=== PATIENT | male | born 1940 | race African-American/Black ===

== ENCOUNTER → 2020-04-17 | Outpatient (CLI) | payer MEDICARE ==
[~2020-04-17] MED LIST: CALCITRIOL0.25 MCG PO; CLOPIDOGREL75 MG PO; FLOMAX0.4 MG PO; FUROSEMIDE40 MG PO; GABAPENTIN100 MG; METOPROLOL SUCC25 MG; NIFEDIPINE20 MG; RENVELA0.8 GM PO; SIMVASTATIN20 MG PO
== END ==
LOC: RAD 13:15
PROVIDERS: ATTEND Surgery
DX: N18.9 Chronic kidney disease, unspecified (principal)
CPT/HCPCS: 93970

== ENCOUNTER → 2020-04-21 | Outpatient (CLI) | payer MEDICARE, OTHER ==
[2020-04-17 13:38] LABS: BASOPHILS % 0.3 % (0.0-1.0); EOSINOPHILS # (AUTO) 0.3 (0.0-0.4); EOSINOPHILS % 5.1 % (0.0-6.0); HEMATOCRIT 32.5 % (38.2-49.6); LYMPHOCYTES # (AUTO) 1.2 (1.0-3.2); LYMPHOCYTES % 19.8 % (18.0-39.1); MEAN CORPUSCULAR HEMOGLOBIN 27.2 pg (28-32); MEAN CORPUSCULAR HGB CONC 33.8 g/dL (31-35); MEAN CORPUSCULAR VOLUME 80.4 fL (81-99); MONOCYTES # (AUTO) 0.6 (0.2-0.8); MONOCYTES % 8.9 % (4.4-11.3); NEUTROPHILS # (AUTO) 4.1 (2.1-6.9); NEUTROPHILS % 65.6 % (38.7-80.0); PLATELET COUNT 188 x10e3/uL (140-360); RED BLOOD COUNT 4.04 x10e6/uL (4.3-5.7); RED CELL DISTRIBUTION WIDTH 14.6 % (11.7-14.4)
[2020-04-17 13:55] LABS: ANION GAP 17.8 mmol/L (8-16); CALCIUM 9.6 mg/dL (8.4-10.2); CREATININE, SERUM 4.23 mg/dL (0.72-1.25); POTASSIUM 3.8 mmol/L (3.5-5.1)
--- NOTE | 2020-04-17 15:15 | Diagnostic Imaging Report ---
Exam: CHEST 2 VIEWS Date: 04/17/2020 3:11 PM INDICATION: ^[id number] ^[id number] ^PRE OP Comparison: None FINDINGS: Lines/Tubes:None Lungs:The lungs are well inflated. No focal consolidation or pulmonary edema. Pleura:No pleural effusion. No pneumothorax. Heart/Mediastinum:The cardiomediastinal silhouette is normal in size and contour. Thoracic aorta is slightly tortuous with calcifications of the aortic knob. Bones/Soft Tissues: No acute osseous abnormality. Mild to moderate multilevel degenerative changes of the spine are noted. Upper abdomen: Unremarkable. IMPRESSION: Negative for acute intrathoracic process. Signed by: Gary Taylor MD on 04/17/2020 3:11 PM
[~2020-04-21] MED LIST changes: +BUPIVACAINE HCL 0.5% INJ 30 ML VIAL INJ ONE; +CEFAZOLIN SOD 1 GM/NS 50ML 50 ML IV ONE; +HEPARIN SOD (PORCINE) 1000 UNIT/ML 30ML ONE; +HEPARIN SOD (PORCINE) 5,000 UNIT/ML VIAL ONE; +PROTAMINE SULFATE 10 MG/ML 5 ML VIAL ONE; +SODIUM CHLORIDE 0.9% 500ML 0 ML ONE; +SODIUM CHLORIDE 0.9% 500ML 500 ML ONE; +THROMBIN FOR SOLN 5,000 UNIT VIAL ONE
--- NOTE | 2020-04-21 07:30 | NUR ---
SPIRITUAL CARE - Pre-Surgery Assessment: Pt in bed. Pt reported supportive attention from family and friends. Intervention: Sports Betting Manager provided pastoral presence, hospitality, and sympathetic listening. Acquainted pt with availability of professional development director while hospitalized. Outcome: Pt expressed appreciation for visit. No need for follow up indicated at this time. JUSTYNA Hernandez Spiritual Care Department O: [phone]
== END ==
LOC: RAD 05:00 → OR 05:52 → EDSTATUS 08:30
PROVIDERS: ATTEND Surgery
DX: Z01.818 Encounter for other preprocedural examination (principal); N18.9 Chronic kidney disease, unspecified; Z53.8 Procedure and treatment not carried out for other reasons; Z11.59 Encounter for screening for other viral diseases
CPT/HCPCS: 36415; 71046; 80048; 85025; 93005; J0690; J7040; U0002; J1644; J2720

== ENCOUNTER → 2020-11-28 | Day surgery (SDC) | payer MEDICARE ==
[2020-11-26 14:02] LABS: BASOPHILS % 0.5 % (0.0-1.0); EOSINOPHILS # (AUTO) 0.4 (0.0-0.4); EOSINOPHILS % 7.1 % (0.0-6.0); HEMATOCRIT 32.6 % (38.2-49.6); LYMPHOCYTES # (AUTO) 1.3 (1.0-3.2); MEAN CORPUSCULAR HEMOGLOBIN 28.7 pg (28-32); MEAN CORPUSCULAR HGB CONC 33.7 g/dL (31-35); MEAN CORPUSCULAR VOLUME 85.1 fL (81-99); MONOCYTES # (AUTO) 0.5 (0.2-0.8); MONOCYTES % 8.9 % (4.4-11.3); NEUTROPHILS # (AUTO) 3.7 (2.1-6.9); PLATELET COUNT 154 x10e3/uL (140-360); RED BLOOD COUNT 3.83 x10e6/uL (4.3-5.7); RED CELL DISTRIBUTION WIDTH 15.5 % (11.7-14.4)
[2020-11-26 14:32] LABS: ANION GAP 18.1 mmol/L (8-16); CALCIUM 10.2 mg/dL (8.4-10.2); CREATININE, SERUM 4.49 mg/dL (0.72-1.25); POTASSIUM 3.1 mmol/L (3.5-5.1)
[~2020-11-28] MED LIST changes: +ALLOPURINOL100 MG PO; +ARICEPT5 MG PO; +FENTANYL CITRATE/PF 100MCG/2 ML INJ ONE; -GABAPENTIN100 MG; +GABAPENTIN100 MG PO; -METOPROLOL SUCC25 MG; +METOPROLOL SUCC25 MG PO; +NAMENDA5 MG PO; -NIFEDIPINE20 MG; +NIFEDIPINE20 MG PO; -SODIUM CHLORIDE 0.9% 500ML 0 ML ONE
[2020-11-28 11:13] LABS: INR 0.95; PROTHROMBIN TIME 13.3 seconds (11.9-14.5)
[2020-11-28 11:14] LABS: PARTIAL THROMBOPLASTIN TIME 27.7 seconds (23.8-35.5)
[2020-11-28 14:50] VITALS: BP 143/81
== END | disposition home or self-care (01) ==
LOC: OR 10:20
PROVIDERS: ATTEND Surgery
DX: N18.6 End stage renal disease (principal); Z99.2 Dependence on renal dialysis; I38 Endocarditis, valve unspecified; Z01.810 Encounter for preprocedural cardiovascular examination; Z01.812 Encounter for preprocedural laboratory examination; Z20.822 Contact with and (suspected) exposure to COVID-19; Z79.02 Long term (current) use of antithrombotics/antiplatelets; Z95.2 Presence of prosthetic heart valve
CPT/HCPCS: 36415 ×2; 36819; 80048; 84132; 85025; 85610; 85730; 93005; C1713; J0690; J1644 ×2; J2720; J3010; J7040; U0002